=== PATIENT | female | born 1980 | race Native Hawaiian/Other Pacific Islander ===

== ENCOUNTER 2022-08-10 14:49 | Inpatient (IN) | payer OTHER | END 2022-08-22 14:51 | disposition still patient (30) | LOC: PAVB 14:49 | PROVIDERS: ADMIT Internal Medicine; ATTEND Internal Medicine ==

== ENCOUNTER 2022-08-11 06:13 | Outpatient (CLI) | payer OTHER ==
[2022-08-11 06:40] LABS: PLATELET COUNT 278 K/uL (152-353)
[2022-08-11 07:44] LABS: POTASSIUM 4.1 mmol/L (3.6-5.2)
== END 2022-08-11 18:50 | disposition home or self-care (01) ==
LOC: LAB 06:13
PROVIDERS: ATTEND Internal Medicine
DX: G80.2 Spastic hemiplegic cerebral palsy (principal); Z79.899 Other long term (current) drug therapy
CPT/HCPCS: 80053; 80061; 85027; 87081

== ENCOUNTER → 2022-08-13 | Outpatient (CLI) | payer OTHER | LOC: LAB 15:57 | PROVIDERS: ATTEND Internal Medicine | DX: E11.9 Type 2 diabetes mellitus without complications (principal); E55.9 Vitamin D deficiency, unspecified | CPT/HCPCS: 82306; 83036 ==

== ENCOUNTER 2022-08-22 15:53 | Inpatient (IN) | payer OTHER | END 2022-09-21 15:12 | disposition still patient (30) | LOC: PAVB 15:53 | PROVIDERS: ADMIT Internal Medicine; ATTEND Internal Medicine ==

== ENCOUNTER 2022-09-21 17:36 | Inpatient (IN) | payer OTHER | END 2022-10-22 10:40 | disposition still patient (30) | LOC: PAVB 17:36 | PROVIDERS: ADMIT Internal Medicine; ATTEND Internal Medicine ==

== ENCOUNTER 2022-10-22 12:35 | Inpatient (IN) | payer OTHER | END 2022-11-22 08:53 | disposition still patient (30) | LOC: PAVB 12:35 | PROVIDERS: ADMIT Internal Medicine; ATTEND Internal Medicine ==

== ENCOUNTER 2022-10-23 07:33 | Outpatient (CLI) | payer OTHER | END 2022-10-23 19:04 | disposition home or self-care (01) | LOC: LAB 07:33 | PROVIDERS: ATTEND Internal Medicine | DX: E11.9 Type 2 diabetes mellitus without complications (principal) | CPT/HCPCS: 83036 ==

== ENCOUNTER 2022-11-22 11:19 | Inpatient (IN) | payer OTHER | END 2022-12-20 12:06 | disposition still patient (30) | LOC: PAVB 11:19 | PROVIDERS: ADMIT Internal Medicine; ATTEND Internal Medicine ==

== ENCOUNTER 2022-12-20 14:18 | Inpatient (IN) | payer OTHER | END 2023-01-20 11:29 | disposition still patient (30) | LOC: PAVB 14:18 | PROVIDERS: ADMIT Internal Medicine; ATTEND Internal Medicine ==

== ENCOUNTER 2023-01-09 15:36 | Outpatient (CLI) | payer OTHER | END 2023-01-09 19:18 | disposition home or self-care (01) | LOC: LAB 15:36 | PROVIDERS: ATTEND Internal Medicine | DX: R41.82 Altered mental status, unspecified (principal); F34.81 Disruptive mood dysregulation disorder | CPT/HCPCS: 81002 ==

== ENCOUNTER 2023-01-20 12:07 | Inpatient (IN) | payer OTHER | END 2023-02-19 10:51 | disposition still patient (30) | LOC: PAVB 12:07 | PROVIDERS: ADMIT Internal Medicine; ATTEND Internal Medicine ==

== ENCOUNTER 2023-01-22 09:15 | Outpatient (CLI) | payer OTHER ==
[2023-01-22 09:34] LABS: PLATELET COUNT 239 K/uL (152-353)
[2023-01-22 09:44] LABS: POTASSIUM 4.5 mmol/L (3.6-5.2)
== END 2023-01-22 20:08 | disposition home or self-care (01) ==
LOC: LAB 09:15
PROVIDERS: ATTEND Internal Medicine
DX: E55.9 Vitamin D deficiency, unspecified (principal); I10 Essential (primary) hypertension; E11.9 Type 2 diabetes mellitus without complications; G80.2 Spastic hemiplegic cerebral palsy
CPT/HCPCS: 80053; 80061; 82306; 83036; 85027

== ENCOUNTER 2023-02-19 14:02 | Inpatient (IN) | payer OTHER | END 2023-03-22 10:38 | disposition still patient (30) | LOC: PAVB 14:02 | PROVIDERS: ADMIT Internal Medicine; ATTEND Internal Medicine ==

== ENCOUNTER 2023-03-22 11:29 | Inpatient (IN) | payer OTHER | END 2023-04-21 17:35 | disposition still patient (30) | LOC: PAVB 11:29 | PROVIDERS: ADMIT Internal Medicine; ATTEND Internal Medicine ==

== ENCOUNTER 2023-04-23 08:01 | Outpatient (CLI) | payer OTHER | END 2023-04-23 19:24 | disposition home or self-care (01) | LOC: LAB 08:01 | PROVIDERS: ATTEND Internal Medicine | DX: E11.9 Type 2 diabetes mellitus without complications (principal) | CPT/HCPCS: 36415; 83036 ==